=== PATIENT | female | born 1985 | race African-American/Black ===

== ENCOUNTER 2017-05-18 13:00 | Inpatient (IN) | payer OTHER ==
[~2017-05-18] VITALS: Ht 167.6 cm; Wt 90.7 kg
--- NOTE | ~2017-05-18 | PA ---
Unit #: [id number] #: [id number] Patient: DARLENE BYRD [id number] [place] [address] [id number] I MR#: [id number] NAME: DARLENE BYRD. ROOM: [facility] Age: 32 Sex: F Admission Date: 05/18/2017 : 1985 Date of Assessment: 05/19/2017 Attending Physician: Ronald Pierre M.D. Admitting Physician: Ronald Pierre M.D. Primary Care Physician: Primary Care Physician No PSYCHIATRIC ASSESSMENT INFORMANTS The patient partially reliable; OLOP, reliable; the patient's family reliable. CHIEF COMPLAINT Psychosis. HISTORY OF PRESENT ILLNESS Darlene Byrd is a 32-year-old woman with previous admissions in this facility for bipolar disorder with psychosis. The patient has apparently been partially noncompliant with medications, but did recently received a long-acting injectable antipsychotic at [facility]; however, she continues to be rambling, disorganized, paranoid, and unstable in home environment. She was admitted for stabilization. PAST PSYCHIATRIC HISTORY Last admission in this facility was in 2012. She has been in the care of [facility] for some time and is taking Invega Sustenna, Depakote, and other medications that will be determined from call to her care worker. FAMILY PSYCHIATRIC HISTORY Please see previous assessments. SOCIAL HISTORY The patient is single and lives with family. She has been hospitalized for mental illness several times since adolescents. He is single with no children. PAST MEDICAL HISTORY History of asthma. MEDICATIONS Please see MAR. ALLERGIES No known medication allergies. SUBSTANCE USE HISTORY The patient has used occasional substances in the past, but none currently according to her and family's report. MENTAL STATUS EXAMINATION The patient presented as a mildly disheveled woman, who appeared her Unit #: [id number] #: [id number] Patient: DARLENE BYRD stated age. She was disorganized and had difficulty cooperating with the examination. Her speech was terse and difficult to assess. Musculoskeletal examination demonstrated psychomotor agitation. Her mood was labile with a decreased range of affect. She was alert and oriented to person and location. Memory and concentration were poor. Thought processes were racing and psychotic. Fund of knowledge and abstraction were impaired. ASSETS AND LIABILITIES The patient is in general good health and knows local resources. She is connected with [facility]. Liabilities include apparent partial compliance with medication. ADMITTING DIAGNOSES AXIS I: Bipolar mixed with psychosis. AXIS II: No diagnosis. AXIS III: History of exercise-induced asthma. AXIS IV: AXIS V: PSYCHIATRIC PLAN The patient was admitted and placed on psychosis precautions. We will contact her pharmacy to determine her most recent medications and re-initiate them, noting her recent administration of Invega Sustenna as well. She will enroll in dual diagnosis groups and activities, and physical examination and laboratory studies will be ordered and reviewed. TREATMENT GOALS Resolution of psychosis, stabilization of mood, improvement in insight, and improvement in coping skills. DISCHARGE PLANNING Follow [facility] with [facility]. ESTIMATED LENGTH OF STAY 5 days. Dictated by... Ronald Pierre M.D. MICHAEL/joycelyn TD: 05/20/2017 05:06 JOB #: [id number] PSYCHIATRIC ASSESSMENT Page 1 of 1 X Ronald Pierre MD X PSYCHIATRIC ASSESSMENT
--- NOTE | ~2017-05-18 | HP ---
Unit #: [id number] #: [id number] Patient: DARLENE BYRD [id number] [place] [address] [id number] I MR#: [id number] NAME: DARLENE BYRD ROOM: P122 Age: 32 Sex: F Admission Date: 05/18/2017 : 1985 Attending Physician: Ronald Pierre M.D. Admitting Physician: Ronald Pierre M.D. Primary Care Physician: Primary Care Physician No HISTORY AND PHYSICAL HISTORY OF PRESENT ILLNESS Darlene is a 32 year old admitted to [address] [place] [address] reporting auditory hallucinations. She is a poor historian so her history is taken from her chart. PAST MEDICAL HISTORY 1. Obesity. 2. Hypothyroidism. PAST SURGICAL HISTORY Nothing reported. ALLERGIES [place], latex. SOCIAL HISTORY She denies cigarettes, alcohol and illicit drug use. FAMILY HISTORY Medically not known. REVIEW OF SYSTEMS She does not answer questions appropriately. There are no reports of nausea, vomiting or diarrhea. She has had no cough or increased temperature. CURRENT MEDICATIONS 1. Saphris 5 mg q.h.s. 2. Cogentin 0.5 mg b.i.d. 3. Depakote ER 500 mg b.i.d. 4. Milk of Magnesia p.r.n. 5. Maalox p.r.n. 6. Tylenol p.r.n. 7. Synthroid 0.05 mg daily. PHYSICAL EXAMINATION GENERAL: Alert, well-nourished, in no apparent distress. VITAL SIGNS: Blood pressure 116/58, heart rate 70, respirations 16, temperature 98.6. WEIGHT: 200. HEIGHT: 5 feet 6 inches. SKIN: Warm and dry without rash or lesion. HEENT: Normocephalic. TMs not viewed. Oral and nasal passages clear. Unit #: [id number] #: [id number] Patient: DARLENE BYRD Conjunctivae clear. PERRLA. EOMs intact. NECK: Supple without lymphadenopathy or thyromegaly. HEART: Regular rate and rhythm without murmur. LUNGS: Clear. ABDOMEN: Soft, nontender. : Not done. EXTREMITIES: No evidence of cyanosis, clubbing or edema. Moves all without focal deficit. NEUROLOGICAL: Unable to complete extended examination. She does move all extremities without focal deficit. Hand seating captain is equal and gait is normal. IMPRESSION Psychiatric admission. RECOMMENDATIONS PSYCHIATRIC: Per psychiatrist. MEDICAL: See no contraindication to participate in facility's activities. MEDICAL PROGNOSIS Good. MEDICAL CONDITION Stable. Dictated by... Sandhya Alex P.A.-C. for Marija Hyde/hanane TD: 05/18/2017 21:03 JOB #: [id number] HISTORY AND PHYSICAL Page 1 of 1 X Sandhya Alex X HISTORY AND PHYSICAL
--- NOTE | ~2017-05-18 | DS ---
Unit #: [id number] #: [id number] Patient: DARLENE BYRD [id number] [place] [address] [id number] I MR#: [id number] NAME: DARLENE BYRD ROOM: [facility] Age: 32 Sex: F Admission Date: 05/18/2017 : 1985 Discharge Date: 05/22/2017 Attending Physician: Ronald Pierre M.D. Primary Care Physician: Primary Care Physician No DISCHARGE SUMMARY REASON FOR ADMISSION Darlene is 32-year-old woman with bipolar disorder who has been partially noncompliant with medications although she recently received her long-acting injectable antipsychotic. She had rambling disorganized speech in the home environment and was admitted for stabilization. DIAGNOSTIC STUDIES LABORATORY DATA: Please see hospital chart. HOSPITAL COURSE Darlene was admitted and placed on psychosis precautions. Saphris was increased to 10 mg at bedtime, but her other medications were continued unchanged. She has somewhat limited insight but was compliant with treatment plan, and at the conclusion of her 72-hour hold she does not qualify for any further involuntary hospitalization. She was discharged at her request. DISCHARGE DIAGNOSES AXIS I: Bipolar 1 disorder, most recent episode, mixed with psychotic features. AXIS II: No diagnosis. AXIS III: History of exercise-induced asthma. DISCHARGE INSTRUCTIONS Follow up with [facility] for medication management and therapy. DISCHARGE MEDICATIONS 1. Saphris 10 mg sublingually at bedtime for psychosis. 2. Depakote ER 500 mg twice daily for mood stability. 3. Cogentin 0.5 mg twice daily for EPS prophylaxis. 4. Invega Sustenna once monthly for long-term bipolar maintenance. 5. Primary care medicines with Synthroid 50 mcg daily for hypothyroidism and ethanol ES tablet daily for hormone regulation. CONDITION ON DISCHARGE Improved. PROGNOSIS Fair. DIET AND ACTIVITY Ad geni. Unit #: [id number] #: [id number] Patient: DARLENE BYRD Dictated by... Marija Calderon/karen TD: 05/25/2017 10:14 JOB #: [id number] DISCHARGE SUMMARY Page 1 of 1 X Ronald Pierre MD X DISCHARGE SUMMARY
--- NOTE | ~2017-05-18 | PN ---
Unit #: [id number] #: [id number] Patient: DARLENE BYRD [id number] [facility] [address] [place] [address] [id number] I MR#: [id number] NAME: DARLENE BYRD ROOM: P122 Age: 32 Sex: F Admission Date: 05/18/2017 : 1985 Attending Physician: Ronald Pierre M.D. Admitting Physician: Ronald Pierre M.D. Primary Care Physician: Primary Care Physician Roxy VELAZCO PROGRESS NOTES DATE 05/21/2017 DISCUSSION Darlene is compliant with her higher dose of Saphris and is sleeping better this morning. Her mood remains somewhat expansive with an inappropriately bright affect and her insight remains superficial. She is, otherwise, alert and oriented to her situation, location, and time, and shows no evidence of dangerousness to self or others. She is pleasant and cooperative with staff. ASSESSMENT Bipolar mixed with psychotic features. PLAN Continue current treatment plan. At this point, the patient does not qualify for involuntary hospitalization, so it is my belief that she will be discharged at the conclusion of her 72-hour hold unless she prefers to stay voluntarily. Dictated by... Marija Calderon/melo TD: 05/22/2017 11:47 JOB #: [id number] JUAN A PROGRESS NOTES Page 1 of 1 X Ronald Pierre MD X PROGRESS NOTE
--- NOTE | ~2017-05-18 | PN ---
Unit #: [id number] #: [id number] Patient: DARLENE BYRD [id number] [facility] [address] [place] [address] [id number] I MR#: [id number] NAME: DARLENE BYRD ROOM: P122 Age: 32 Sex: F Admission Date: 05/18/2017 : 1985 Attending Physician: Ronald Pierre M.D. Admitting Physician: Ronald Pierre M.D. Primary Care Physician: Primary Care Physician Roxy HERNANDEZ NOTES DATE 05/20/2017 DISCUSSION Darlene is extremely manic this morning with an inappropriately bright affect, invasion of personal space during conversation, rapid speech, and poor insight. She believes that she is "ready to get out of the hospital" although she talks about buying clothes to "dress her niece and nephew up as dolls, because I never had dolls," and other odd remarks. She is very active with other patients on the unit. She is alert, oriented, in person and location, partially to situation and partially to time. Memory and concentration are only fair and her thought processes are racing as noted above. ASSESSMENT Bipolar mixed. PLAN Will increase Saphris to 10 mg at bedtime and continue current treatment plan otherwise. Dictated by... Ronald Pierre M.D. MICHAEL/melo TD: 05/22/2017 08:57 JOB #: [id number] JUAN A PROGRESS NOTES Page 1 of 1 X Ronald Pierre MD X PROGRESS NOTE
== END 2017-05-22 14:20 | disposition home or self-care (01) | DRG 885 ==
LOC: P1S 13:06
DX: F31.5 Bipolar disorder, current episode depressed, severe, with psychotic features (principal); E03.9 Hypothyroidism, unspecified; E66.9 Obesity, unspecified; Z91.040 Latex allergy status